=== PATIENT | female | born 1995 | race African-American/Black ===

== ENCOUNTER 2023-10-13 11:31 | Emergency (ER) | payer MEDICAID ==
[~2023-10-13] VITALS: Ht 165.1 cm; Wt 69.0 kg
[2023-10-13 11:35] VITALS: BP 124/84; PULSE 115; RESP 18; TEMP 98; O2SAT 98
[2023-10-13] MEDS: LORAZEPAM 2MG/ML INJ IM STA (13:12)
[2023-10-13] MEDS: DIPHENHYDRAMINE 50MG/ML VIAL IM STA (13:12)
[2023-10-13] MEDS: HALOPERIDOL LACTATE 5MG/ML VIAL IM STA (13:12)
== END 2023-10-13 13:30 | disposition home or self-care (01) ==
LOC: ER 11:31
DX: F19.10 Other psychoactive substance abuse, uncomplicated (principal); Z88.4 Allergy status to anesthetic agent
CPT/HCPCS: 99284